=== PATIENT | male | born 1995 | race Caucasian/White ===

== ENCOUNTER 2017-03-22 13:09 | Emergency (ER) | payer BC ==
[~2017-03-22] VITALS: Ht 193 cm; Wt 90.7 kg
--- NOTE | 2017-03-22 13:10 | NUR ---
PT AMBULATORY TO ER BED 15. C/O RLQ ABDOMINAL PAIN W/ M/V/D X 5 DAYS. NOT NAUSEATED AT THIS TIME. GOWNED AND PLACED ON MONITOR. AWAITING MD COTTER.
--- NOTE | 2017-03-22 13:32 | NUR ---
[employer]LE[employer] SUPERVISOR AT BEDSIDE FOR EVAL.
[2017-03-22] MEDS ORDERED: IV NS 0.9% 1,000 ML ONE (13:40)
[2017-03-22] MEDS ORDERED: IV SET PRIMARY 1 EA INFUS.SET MC ONE (13:40)
--- NOTE | 2017-03-22 13:45 | NUR ---
IV LINE STARTED. BLOOD DRAWN AND SENT TO LAB.
[2017-03-22 13:59] LABS: APPEARANCE,URINE CLEAR (CLEAR); BILIRUBIN,URINE NEGATIVE (NEGATIVE); BLOOD, URINE NEGATIVE Ery/uL (NEGATIVE); COLOR,URINE YELLOW (YELLOW); KETONES,URINE NEGATIVE (NEGATIVE); LEUKOCYTE ESTERASE ,URINE NEGATIVE (NEGATIVE); NITRITE, URINE NEGATIVE (NEGATIVE); PH,URINE 8.5 (5.0-8.0); PROTEIN,URINE NEGATIVE (NEGATIVE); UGLUCOSE NEGATIVE (NEGATIVE); UROBILINOGEN,URINE 0.2 EU/dL (0.2)
[2017-03-22 14:00] LABS: BASOPHILS % (AUTO) 0.2 % (0.0-2.0); EOSINOPHILS # (AUTO) 0.1 /CMM (0.0-0.7); EOSINOPHILS % (AUTO) 1.2 % (0.0-6.0); HEMATOCRIT 48 % (39-51); HEMOGLOBIN 16.1 g/dL (13.5-17.5); LYMPHOCYTES # (AUTO) 1.6 /CMM (0.8-4.8); LYMPHOCYTES % (AUTO) 24.1 % (20.0-44.0); MEAN CORPUSCULAR HEMOGLOBIN 29 PG (26.0-33.0); MEAN CORPUSCULAR HGB CONC 34 g/dl (31.0-36.0); MEAN CORPUSCULAR VOLUME 87 fL (80-96); MONOCYTES # (AUTO) 0.5 /CMM (0.1-1.30); MONOCYTES % (AUTO) 7.8 % (2.0-12.0); NEUTROPHILS # (AUTO) 4.4 /CMM (1.8-8.9); NEUTROPHILS % (AUTO) 66.7 % (43.0-81.0); PLATELET COUNT (AUTO) 205 /CMM (150-450); RDW COEFFICIENT OF VARIATION 12.9 (11.5-15.0); RED BLOOD CELL COUNT(AUTO) 5.48 MIL/uL (4.5-6.0); WHITE BLOOD COUNT (AUTO) 6.6 K/uL (4.3-11.0)
[2017-03-22] MEDS ORDERED: IV NS 0.9% 1,000 ML BAG IV ONE (14:00)
[2017-03-22 14:13] LABS: CALCIUM, SERUM 9.4 mg/dL (8.5-10.1); CREATININE 0.9 mg/dL (0.6-1.3); POTASSIUM 3.5 mmol/L (3.5-5.1)
[2017-03-22 14:19] LABS: ALBUMIN 4.5 g/dL (3.4-5.0); BILIRUBIN,DIRECT 0.1 mg/dL (0.0-0.2); BILIRUBIN,TOTAL 0.6 mg/dL (0.2-1.0); TOTAL PROTEIN, SERUM 8.1 g/dL (6.4-8.2)
[2017-03-22 14:28] LABS: INR 0.97 (0.87-1.13); PROTHROMBIN TIME 10.4 SECS (9.5-12.7)
[2017-03-22] MEDS ORDERED: CT SWABBABLE VALVE TRANS SET 1 EA INFUS.SET MC ONE (14:28)
[2017-03-22] MEDS ORDERED: IV NS 0.9% 250 ML IV ONE (14:28)
[2017-03-22] MEDS ORDERED: IOHEXOL-300 100 ML VIAL IV ONE (14:28)
--- NOTE | 2017-03-22 15:19 | NUR ---
Patient discharged to home in stable condition. Written and verbal after care instructions given. Patient verbalizes understanding of instruction.IV removed. Catheter intact and site benign. Pressure and 4x4 applied to site. No bleeding noted.
[2017-03-22 15:23] VITALS: BP 132/77
== END 2017-03-22 15:25 | disposition home or self-care (01) ==
LOC: ER 13:13
DX: R10.31 Right lower quadrant pain (principal); R11.2 Nausea with vomiting, unspecified; R19.7 Diarrhea, unspecified; J45.909 Unspecified asthma, uncomplicated; F17.200 Nicotine dependence, unspecified, uncomplicated
CPT/HCPCS: 36415; 74160; 80048; 80076; 81001; 83690; 85025; 85730; 99285; A4606; J7030 ×2; J7050 ×2; Q9967 ×2; Z7610; 81000-TC

== ENCOUNTER 2017-04-18 14:15 | Emergency (ER) | payer BC ==
[~2017-04-18] VITALS: Ht 190.5 cm; Wt 86.2 kg
--- NOTE | 2017-04-18 14:32 | NUR ---
PRESENTS SELF TO ED FOR DIFFUSE ABD PAIN X 1 MONTH. + VOMITING. PATIENT'S VS STABLE
[2017-04-18] MEDS ORDERED: ONDANSETRON HCL/PF 4 MG/2 ML VIAL ONE (15:15)
[2017-04-18] MEDS ORDERED: MORPHINE SULFATE INJ 2 MG/ML DISP.SYRIN ONE (15:15)
[2017-04-18] MEDS ORDERED: ONDANSETRON HCL/PF 4 MG/2 ML VIAL IVP ONE (15:30)
[2017-04-18] MEDS ORDERED: MORPHINE SULFATE INJ 2 MG/ML DISP.SYRIN IV ONE (15:30)
[2017-04-18] MEDS ORDERED: IV NS 0.9% 1,000 ML BAG IV ONE (15:30)
[2017-04-18 15:42] LABS: ALBUMIN 5.2 g/dL (3.4-5.0); BILIRUBIN,DIRECT 0.1 mg/dL (0.0-0.2); BILIRUBIN,TOTAL 0.7 mg/dL (0.2-1.0); CALCIUM, SERUM 9.7 mg/dL (8.5-10.1); TOTAL PROTEIN, SERUM 7.8 g/dL (6.4-8.2)
[2017-04-18 15:54] LABS: BASOPHILS % (AUTO) 0.3 % (0.0-2.0); EOSINOPHILS % (AUTO) 0.4 % (0.0-6.0); HEMATOCRIT 47 % (39-51); HEMOGLOBIN 15.4 g/dL (13.5-17.5); LYMPHOCYTES # (AUTO) 1.9 /CMM (0.8-4.8); LYMPHOCYTES % (AUTO) 29.1 % (20.0-44.0); MEAN CORPUSCULAR HEMOGLOBIN 29 PG (26.0-33.0); MEAN CORPUSCULAR HGB CONC 33 g/dl (31.0-36.0); MEAN CORPUSCULAR VOLUME 88 fL (80-96); MONOCYTES # (AUTO) 0.5 /CMM (0.1-1.30); MONOCYTES % (AUTO) 6.7 % (2.0-12.0); NEUTROPHILS # (AUTO) 4.3 /CMM (1.8-8.9); NEUTROPHILS % (AUTO) 63.5 % (43.0-81.0); PLATELET COUNT (AUTO) 204 /CMM (150-450); RDW COEFFICIENT OF VARIATION 13.4 (11.5-15.0); RED BLOOD CELL COUNT(AUTO) 5.27 MIL/uL (4.5-6.0); WHITE BLOOD COUNT (AUTO) 6.7 K/uL (4.3-11.0)
[2017-04-18] MEDS ORDERED: CT SWABBABLE VALVE TRANS SET 1 EA INFUS.SET MC ONE (16:23)
[2017-04-18] MEDS ORDERED: IOHEXOL-300 100 ML VIAL IV ONE (16:23)
[2017-04-18] MEDS ORDERED: IV NS 0.9% 250 ML IV ONE (16:24)
[2017-04-18 17:02] LABS: APPEARANCE,URINE Clear (CLEAR); BILIRUBIN,URINE Negative (NEGATIVE); BLOOD, URINE Negative Ery/uL (NEGATIVE); COLOR,URINE Yellow (YELLOW); KETONES,URINE Negative (NEGATIVE); LEUKOCYTE ESTERASE ,URINE Negative (NEGATIVE); NITRITE, URINE Negative (NEGATIVE); PH,URINE 6.5 (5.0-8.0); PROTEIN,URINE Negative (NEGATIVE); UGLUCOSE Negative (NEGATIVE); UROBILINOGEN,URINE 0.2 EU/dL (0.2)
[2017-04-18 18:05] VITALS: BP 124/75
--- NOTE | 2017-04-18 18:06 | NUR ---
Patient discharged to home in stable condition. Written and verbal after care instructions given. Patient verbalizes understanding of instruction.
== END 2017-04-18 18:06 | disposition home or self-care (01) ==
LOC: ER 14:19
DX: R10.84 Generalized abdominal pain (principal); E86.0 Dehydration; J45.909 Unspecified asthma, uncomplicated
CPT/HCPCS: 36415; 74160; 76705; 80048; 80076; 81001; 83690; 85025; 96361; 96374; 99285; A4606; 81000-TC; Z7610

== ENCOUNTER 2020-12-29 11:42 | Emergency (ER) | payer BC, MEDICAID ==
[~2020-12-29] VITALS: Ht 190.5 cm; Wt 74.8 kg
--- NOTE | 2020-12-29 11:54 | NUR ---
TO ER BED 2,URINE SPECIMEN COLLECTED,AWAITING MD COTTER
--- NOTE | 2020-12-29 12:00 | NUR ---
PATIENT BIBS FOR C/O LEFT INGUINAL PAIN/TENDERNESS X 3 DAYS. RATES PAIN 8/10. ALERT AND ORIENTED X4. DENIES NUMBNESS/TINGLING IN THE EXTREMITIES. WILL CONTINUE TO MONITOR THE PATIENT.
[2020-12-29 13:26] LABS: BILIRUBIN,URINE NEGATIVE (NEGATIVE); COLOR,URINE YELLOW (YELLOW); LEUKOCYTE ESTERASE ,URINE NEGATIVE (NEGATIVE); NITRITE, URINE NEGATIVE (NEGATIVE); PROTEIN,URINE NEGATIVE (NEGATIVE); UGLUCOSE NEGATIVE (NEGATIVE); UROBILINOGEN,URINE 0.2 EU/dL (0.2)
[2020-12-29] MEDS ORDERED: IBUP-1955 PO (14:51)
[2020-12-29 14:56] VITALS: BP 125/74
--- NOTE | 2020-12-29 14:56 | NUR ---
Patient discharged to home in stable condition. Written and verbal after care instructions given. Patient verbalizes understanding of instruction. The patient left ER in stable condition.
== END 2020-12-29 14:57 | disposition home or self-care (01) ==
LOC: ER 11:50
DX: N50.82 Scrotal pain (principal); N50.812 Left testicular pain; J45.909 Unspecified asthma, uncomplicated
CPT/HCPCS: 76870-TC

== ENCOUNTER 2022-09-30 13:41 | Emergency (ER) | payer MEDICAID ==
[~2022-09-30] VITALS: Ht 193 cm; Wt 79.4 kg
[~2022-09-30 13:41] MED LIST: IBUP-1955 PO
--- NOTE | 2022-09-30 14:05 | NUR ---
RECEIVED PT 27 YRS MALE waking in c/o abdominal pain for one week
--- NOTE | 2022-09-30 14:10 | NUR ---
UA SENT TO LAB
--- NOTE | 2022-09-30 14:20 | NUR ---
Seen by DR. HIGGINS
--- NOTE | 2022-09-30 14:51 | NUR ---
Blood DROW BY ROBBYH
[2022-09-30 15:17] LABS: BASOPHILS % (AUTO) 0.4 % (0.0-2.0); EOSINOPHILS % (AUTO) 2.2 % (0.0-6.0); HEMATOCRIT 42 % (39-51); HEMOGLOBIN 13.8 g/dL (13.5-17.5); LYMPHOCYTES # (AUTO) 1.7 K/uL (0.8-4.8); LYMPHOCYTES % (AUTO) 31.1 % (20.0-44.0); MEAN CORPUSCULAR HGB CONC 33 g/dl (31.0-36.0); MEAN CORPUSCULAR VOLUME 89 fL (80-96); MONOCYTES # (AUTO) 0.4 K/uL (0.1-1.30); MONOCYTES % (AUTO) 8.2 % (2.0-12.0); NEUTROPHILS # (AUTO) 3.1 K/uL (1.8-8.9); NEUTROPHILS % (AUTO) 58.1 % (43.0-81.0); PLATELET COUNT (AUTO) 201 K/uL (150-450); RED BLOOD CELL COUNT(AUTO) 4.72 MIL/uL (4.5-6.0); WHITE BLOOD COUNT (AUTO) 5.4 K/uL (4.3-11.0)
[2022-09-30 15:26] LABS: BILIRUBIN,URINE NEGATIVE (NEGATIVE); COLOR,URINE YELLOW (YELLOW); LEUKOCYTE ESTERASE ,URINE NEGATIVE (NEGATIVE); NITRITE, URINE NEGATIVE (NEGATIVE); PROTEIN,URINE NEGATIVE (NEGATIVE); UGLUCOSE NEGATIVE (NEGATIVE)
[2022-09-30 15:45] LABS: CALCIUM, SERUM 9.2 mg/dL (8.5-10.1); CREATININE 0.9 mg/dL (0.6-1.3)
[2022-09-30 15:50] LABS: BACTERIA,URINE None seen /HPF (None Seen); MUCUS,URINE Few /LPF (None Seen); RBC,URINE 0-2 /HPF (0-2); SQUAMOUS EPITHELIAL CELL,UR 0-2 /HPF (None Seen); URINE AMORPHOUS PHOSPHATES Moderate /HPF (None Seen); WBC,URINE 0-2 /HPF (0-3)
[2022-09-30 15:51] LABS: ALBUMIN 4.2 g/dL (3.4-5.0); BILIRUBIN,DIRECT 0.1 mg/dL (0.0-0.2); BILIRUBIN,TOTAL 0.5 mg/dL (0.2-1.0); TOTAL PROTEIN, SERUM 7.3 g/dL (6.4-8.2)
[2022-09-30] MEDS ORDERED: OMEP40CA21 PO (16:00)
[2022-09-30 16:14] VITALS: BP 113/73
--- NOTE | 2022-09-30 16:14 | NUR ---
Patient discharged to home in stable condition. Written and verbal after care instructions given. Patient verbalizes understanding of instruction.
== END 2022-09-30 16:10 | disposition home or self-care (01) ==
LOC: ER 13:47
DX: R10.11 Right upper quadrant pain (principal); J45.909 Unspecified asthma, uncomplicated; Z79.899 Other long term (current) drug therapy
CPT/HCPCS: 36415; 76705-TC; 80048-TC; 80076-TC; 81001; 83690-TC; 85025-TC

== ENCOUNTER 2022-12-18 15:21 | Emergency (ER) | payer MEDICAID, OTHER ==
[~2022-12-18] VITALS: Ht 190.5 cm; Wt 77.1 kg
[~2022-12-18 15:21] MED LIST changes: +OMEP40CA21 PO
[2022-12-18 15:43] VITALS: BP 119/75
--- NOTE | 2022-12-18 16:03 | NUR ---
Discussed discharge plan with pt, verbalized agreement. Patient signed discharge form.
== END 2022-12-18 16:04 | disposition home or self-care (01) ==
LOC: ER 15:30
DX: J02.9 Acute pharyngitis, unspecified (principal); J45.909 Unspecified asthma, uncomplicated